=== PATIENT | female | born 1940 | race Caucasian/White ===

== ENCOUNTER 2018-08-31 20:28 | Inpatient (IN) | payer SELFPAY ==
[~2018-08-31] VITALS: Ht 149.9 cm; Wt 61.3 kg
[2018-08-31] MEDS ORDERED: ACETAMINOPHEN 325MG TABLET PO STA (21:43)
[2018-08-31] MEDS ORDERED: SODIUM CHLORIDE 0.9% 1000ML BAG (SEPSIS BOLUS) IV ONE (21:45)
[2018-08-31 22:41] LABS: HEMATOCRIT. 31.1 % (36.0-48.0); HEMOGLOBIN. 10.6 g/dL (12.0-16.0); MEAN CORPUSCULAR HEMOGLOBIN 31.1 pg (28.0-32.0); MEAN CORPUSCULAR VOLUME 91.7 fL (81.0-99.0); MEAN PLATELET VOLUME 9.2 fl (7.4-10.4); PLATELET 172 x1000/uL (130-400); RED BLOOD CELL COUNT 3.39 mill/uL (4.2-5.4); RED CELL DISTRIBUTION WIDTH 14.6 % (11.6-14.6)
[2018-08-31 22:43] LABS: PROTHROMBIN TIME 10.2 sec (9.1-11.1)
[2018-08-31 22:44] LABS: CHLORIDE 109 mEq/L (98-107)
[2018-08-31 23:00] LABS: PLATELET ESTIMATE NORMAL
[2018-08-31] MEDS ORDERED: ASPIRIN 325MG EC TABLET PO ONE (23:15)
[2018-08-31] MEDS ORDERED: PIPERACILLIN SODIUM/TAZOBACTAM 4.5 G in DEXT 5% WATER 100 ML IV SCH (23:37)
[2018-08-31] MEDS ORDERED: POTASSIUM CHLORIDE 20MEQ TABLET SR PO SCH (23:38)
[2018-09-01] VITALS (42 sets, daily range): BP systolic 54–168; BP diastolic 39–145
[2018-09-01 00:06] LABS: CLARITY URINE CLOUDY (CLEAR); COLOR URINE ORANGE (YELLOW); KETONES URINE NEGATIVE (NEGATIVE); LEUKOCYTE ESTERASE URINE 2+ (NEGATIVE); NITRITE URINE POSITIVE (NEGATIVE); OCCULT BLOOD URINE TRACE (NEGATIVE); PH URINE 5.5 (4.5-8.0); PROTEIN URINE 1+ (NEGATIVE); SPECIFIC GRAVITY URINE 1.019 (1.005-1.030)
[2018-09-01] MEDS ORDERED: SODIUM CHLORIDE 0.9% 1,000 ML IV ONE ×2 (01:30)
[2018-09-01] MEDS ORDERED: POTASSIUM CHLORIDE 20MEQ TABLET SR PO PRN (05:30)
[2018-09-01] MEDS ORDERED: ACETAMINOPHEN 325MG TABLET PO PRN (05:30)
[2018-09-01] MEDS ORDERED: TRAMADOL 50MG TABLET PO PRN (05:30)
[2018-09-01 06:14] LABS: BASOPHILS % 0.2 % (0.0-2.0); HEMATOCRIT. 30.9 % (36.0-48.0); HEMOGLOBIN. 10.3 g/dL (12.0-16.0); LYMPHOCYTES % 13.6 % (20.0-50.0); MEAN CORPUSCULAR HEMOGLOBIN 30.9 pg (28.0-32.0); MEAN CORPUSCULAR VOLUME 92.7 fL (81.0-99.0); MEAN PLATELET VOLUME 9.7 fl (7.4-10.4); MONOCYTES % 11.8 % (2.0-8.0); NEUTROPHILS % 74.4 % (40.0-76.0); PLATELET 159 x1000/uL (130-400); RED BLOOD CELL COUNT 3.34 mill/uL (4.2-5.4); RED CELL DISTRIBUTION WIDTH 14.5 % (11.6-14.6)
[2018-09-01 06:24] LABS: CHLORIDE 117 mEq/L (98-107)
[2018-09-01] MEDS: SODIUM CHLORIDE 0.9% 1,000 ML IV SCH ×2 (06:44→15:22)
[2018-09-01] MEDS: CEFTRIAXONE 1 G PREMIX 50 ML IV SCH (08:57)
[2018-09-01] MEDS: ONDANSETRON HCL 4MG/2ML INJ IV PRN ×2 (09:27→18:49)
[2018-09-01] MEDS ORDERED: ENOXAPARIN 40MG/0.4ML SYR SUBCUT SCH (09:30)
[2018-09-01] MEDS: ASPIRIN 81MG EC TABLET PO SCH (10:08)
[2018-09-01] MEDS ORDERED: INFLUENZA VIRUS VACCINE(AFLURIA) 0.5ML SYR IM ONE (12:00)
[2018-09-01] MEDS ORDERED: PNEUMOCOCCAL 23-VAL P-SAC VAC 0.5 ML IM ONE (12:00)
[2018-09-01] MEDS: ATORVASTATIN CALCIUM 40MG TABLET PO SCH (21:00)
[2018-09-01 22:57] LABS: BG BASE EXCESS -13.4 mmol/L (-2.0-2.0); BG CARBOXYHEMOGLOBIN 0.1 % (0.5-1.5); BG DEOXYHEMOGLOBIN 4.4 % (0.0-5.0); BG FRACTION INSPIRED OXYGEN 36; BG HCO3 ACT 13.8 mmol/L (22.0-26.0); BG METHEMOGLOBIN 0.1 % (0.0-1.5); BG OXYGEN SATURATION 95.6 % (92.0-98.5); BG OXYHEMOGLOBIN 95.4 % (94.0-97.0); BG PCO2 36.8 mmHg (35.0-45.0); BG PH 7.192 (7.350-7.450); BG SAMPLE SITE RIGHT RADIAL; BG TOTAL HEMOGLOBIN 11.4 g/dL (12.0-18.0); BG VENT MODE NASAL CANNULA
[2018-09-02] VITALS (31 sets, daily range): BP systolic 95–160; BP diastolic 50–95
[2018-09-02] MEDS ORDERED: FUROSEMIDE 20MG/2ML VIAL IVP SCH (00:30)
[2018-09-02] MEDS: SODIUM CHLORIDE 0.9% 1,000 ML IV SCH (00:33)
[2018-09-02] MEDS: IPRATROPIUM/ALBUTEROL 0.5-3(2.5)MG/3ML NEB HHN PRN (01:29)
[2018-09-02 01:34] LABS: HEMATOCRIT. 35.1 % (36.0-48.0); HEMOGLOBIN. 11.4 g/dL (12.0-16.0); MEAN CORPUSCULAR HEMOGLOBIN 30.4 pg (28.0-32.0); MEAN PLATELET VOLUME 9.5 fl (7.4-10.4); PLATELET 223 x1000/uL (130-400); RED BLOOD CELL COUNT 3.73 mill/uL (4.2-5.4); RED CELL DISTRIBUTION WIDTH 15.4 % (11.6-14.6)
[2018-09-02 01:39] LABS: CHLORIDE 115 mEq/L (98-107)
[2018-09-02 02:56] LABS: PLATELET ESTIMATE NORMAL
[2018-09-02 06:24] LABS: HEMATOCRIT. 29.3 % (36.0-48.0); HEMOGLOBIN. 9.9 g/dL (12.0-16.0); MEAN CORPUSCULAR HEMOGLOBIN 31.1 pg (28.0-32.0); MEAN CORPUSCULAR VOLUME 92.2 fL (81.0-99.0); MEAN PLATELET VOLUME 9.6 fl (7.4-10.4); PLATELET 179 x1000/uL (130-400); RED BLOOD CELL COUNT 3.18 mill/uL (4.2-5.4)
[2018-09-02 06:27] LABS: CHLORIDE 116 mEq/L (98-107)
[2018-09-02] MEDS: CEFTRIAXONE 1 G PREMIX 50 ML IV SCH (06:48)
[2018-09-02 08:11] LABS: PLATELET ESTIMATE NORMAL
[2018-09-02] MEDS: POTASSIUM CHLORIDE 20MEQ TABLET SR PO SCH (09:53)
[2018-09-02] MEDS ORDERED: POTASSIUM CHLORIDE INJ 40 MEQ in DEXT 5% WATER 250 ML IV NR (10:00)
[2018-09-02] MEDS: ASPIRIN 81MG EC TABLET PO SCH (10:24)
[2018-09-02] MEDS: ENOXAPARIN 80MG/0.8ML SYR SUBCUT SCH ×2 (10:24→21:34)
[2018-09-02] MEDS: FUROSEMIDE 40MG/4ML VIAL IVP SCH ×2 (10:24→17:16)
[2018-09-02] MEDS: ATORVASTATIN CALCIUM 40MG TABLET PO SCH (21:33)
[2018-09-02] MEDS: CARVEDILOL 6.25 MG TABLET PO SCH (21:34)
[2018-09-03] VITALS (36 sets, daily range): BP systolic 77–124; BP diastolic 43–92
[2018-09-03 06:37] LABS: BASOPHILS % 0.4 % (0.0-2.0); HEMATOCRIT. 29.3 % (36.0-48.0); HEMOGLOBIN. 9.9 g/dL (12.0-16.0); LYMPHOCYTES % 8.8 % (20.0-50.0); MEAN CORPUSCULAR HEMOGLOBIN 30.8 pg (28.0-32.0); MEAN CORPUSCULAR VOLUME 91.4 fL (81.0-99.0); MONOCYTES % 10.3 % (2.0-8.0); NEUTROPHILS % 80.5 % (40.0-76.0); PLATELET 205 x1000/uL (130-400)
[2018-09-03] MEDS: CEFTRIAXONE 1 G PREMIX 50 ML IV SCH (07:15)
[2018-09-03] MEDS: IPRATROPIUM/ALBUTEROL 0.5-3(2.5)MG/3ML NEB HHN PRN ×2 (07:51→17:05)
[2018-09-03] MEDS: FUROSEMIDE 40MG/4ML VIAL IVP SCH ×2 (08:08→17:15)
[2018-09-03 08:49] LABS: BG BASE EXCESS -4.7 mmol/L (-2.0-2.0); BG CARBOXYHEMOGLOBIN 0.3 % (0.5-1.5); BG DEOXYHEMOGLOBIN 3.2 % (0.0-5.0); BG FRACTION INSPIRED OXYGEN 28; BG HCO3 ACT 21.1 mmol/L (22.0-26.0); BG OXYGEN SATURATION 96.8 % (92.0-98.5); BG OXYHEMOGLOBIN 96.5 % (94.0-97.0); BG PCO2 41.7 mmHg (35.0-45.0); BG PH 7.322 (7.350-7.450); BG PO2 91.4 mmHg (75.0-100.0); BG SAMPLE SITE RIGHT RADIAL; BG TOTAL HEMOGLOBIN 10.4 g/dL (12.0-18.0); BG VENT MODE NASAL CANNULA
[2018-09-03] MEDS: CARVEDILOL 6.25 MG TABLET PO SCH ×2 (09:00→21:00)
[2018-09-03] MEDS: ASPIRIN 81MG EC TABLET PO SCH (09:46)
[2018-09-03] MEDS: ENOXAPARIN 80MG/0.8ML SYR SUBCUT SCH ×2 (09:46→22:40)
[2018-09-03] MEDS: ATORVASTATIN CALCIUM 40MG TABLET PO SCH (22:40)
[2018-09-04] VITALS (25 sets, daily range): BP systolic 84–124; BP diastolic 40–75
[2018-09-04 06:29] LABS: CHLORIDE 111 mEq/L (98-107)
[2018-09-04] MEDS: CEFTRIAXONE 1 G PREMIX 50 ML IV SCH (07:28)
[2018-09-04] MEDS: FUROSEMIDE 40MG/4ML VIAL IVP SCH ×2 (09:50→17:15)
[2018-09-04] MEDS: ASPIRIN 81MG EC TABLET PO SCH (09:51)
[2018-09-04] MEDS: POTASSIUM CHLORIDE 20MEQ TABLET SR PO SCH (09:51)
[2018-09-04] MEDS: ENOXAPARIN 80MG/0.8ML SYR SUBCUT SCH ×2 (09:56→21:19)
[2018-09-04] MEDS: CARVEDILOL 6.25 MG TABLET PO SCH ×2 (09:57→21:00)
[2018-09-04] MEDS: IPRATROPIUM/ALBUTEROL 0.5-3(2.5)MG/3ML NEB HHN PRN (13:37)
[2018-09-04] MEDS: NITROGLYCERIN OINT 1GM/INCH UDPKT TD SCH ×2 (15:00→22:00)
[2018-09-04] MEDS: LEVOFLOXACIN 250MG TABLET PO SCH (15:46)
[2018-09-04] MEDS: ATORVASTATIN CALCIUM 40MG TABLET PO SCH (21:19)
[2018-09-05] VITALS (29 sets, daily range): BP systolic 89–121; BP diastolic 47–75
[2018-09-05 05:33] LABS: BASOPHILS % 0.4 % (0.0-2.0); EOSINOPHILS % 2.2 % (0.0-5.0); HEMATOCRIT. 29.1 % (36.0-48.0); HEMOGLOBIN. 9.7 g/dL (12.0-16.0); LYMPHOCYTES % 17.9 % (20.0-50.0); MEAN CORPUSCULAR HEMOGLOBIN 30.4 pg (28.0-32.0); MEAN CORPUSCULAR VOLUME 91.4 fL (81.0-99.0); MEAN PLATELET VOLUME 8.9 fl (7.4-10.4); MONOCYTES % 14.1 % (2.0-8.0); NEUTROPHILS % 65.4 % (40.0-76.0); PLATELET 259 x1000/uL (130-400); RED BLOOD CELL COUNT 3.19 mill/uL (4.2-5.4); RED CELL DISTRIBUTION WIDTH 14.5 % (11.6-14.6)
[2018-09-05 05:44] LABS: CHLORIDE 108 mEq/L (98-107)
[2018-09-05] MEDS: NITROGLYCERIN OINT 1GM/INCH UDPKT TD SCH ×4 (06:00→21:09)
[2018-09-05] MEDS: FUROSEMIDE 40MG/4ML VIAL IVP SCH ×2 (07:59→17:37)
[2018-09-05] MEDS: ASPIRIN 81MG EC TABLET PO SCH (09:00)
[2018-09-05] MEDS: ENOXAPARIN 80MG/0.8ML SYR SUBCUT SCH (09:00)
[2018-09-05] MEDS: CARVEDILOL 6.25 MG TABLET PO SCH (09:00)
[2018-09-05] MEDS: POTASSIUM CHLORIDE 20MEQ TABLET SR PO SCH (09:00)
[2018-09-05] MEDS: ATORVASTATIN CALCIUM 40MG TABLET PO SCH (21:09)
[2018-09-06] VITALS (11 sets, daily range): BP systolic 91–106; BP diastolic 46–63
[2018-09-06] MEDS: NITROGLYCERIN OINT 1GM/INCH UDPKT TD SCH ×3 (06:35→21:41)
[2018-09-06 08:23] LABS: BASOPHILS % 0.7 % (0.0-2.0); EOSINOPHILS % 2.6 % (0.0-5.0); HEMATOCRIT. 31.2 % (36.0-48.0); HEMOGLOBIN. 10.5 g/dL (12.0-16.0); LYMPHOCYTES % 16.4 % (20.0-50.0); MEAN CORPUSCULAR HEMOGLOBIN 30.7 pg (28.0-32.0); MEAN CORPUSCULAR VOLUME 91.2 fL (81.0-99.0); MEAN PLATELET VOLUME 9.1 fl (7.4-10.4); MONOCYTES % 13.5 % (2.0-8.0); NEUTROPHILS % 66.8 % (40.0-76.0); PLATELET 315 x1000/uL (130-400); RED BLOOD CELL COUNT 3.42 mill/uL (4.2-5.4); RED CELL DISTRIBUTION WIDTH 14.1 % (11.6-14.6)
[2018-09-06] MEDS: FUROSEMIDE 40MG/4ML VIAL IVP SCH ×2 (09:04→17:08)
[2018-09-06] MEDS: POTASSIUM CHLORIDE 20MEQ TABLET SR PO SCH (09:22)
[2018-09-06] MEDS: CARVEDILOL 3.125 MG TABLET PO SCH ×2 (09:24→21:41)
[2018-09-06] MEDS: ASPIRIN 81MG EC TABLET PO SCH (09:24)
[2018-09-06] MEDS ORDERED: LIDOCAINE HCL 1% 20ML VIAL (Pyxis) INJ ONE (12:21)
[2018-09-06] MEDS ORDERED: IODIXANOL 320MG/ML 100 ML BOTTLE IV ONE ×2 (12:21→13:54)
[2018-09-06] MEDS ORDERED: FENTANYL CITRATE/PF 50MCG/ML 2ML VIAL ONE (12:46)
[2018-09-06] MEDS ORDERED: MIDAZOLAM HCL 2 MG/2 ML VIAL ONE (12:46)
[2018-09-06] MEDS ORDERED: IOHEXOL-300 100 ML BOTTLE ONE (13:19)
[2018-09-06] MEDS ORDERED: HEPARIN SODIUM 1,000 UNIT/1ML VIAL IV ONE (13:53)
[2018-09-06] MEDS ORDERED: NITROGLYCERIN 50MCG/ML 10ML VIAL (CATH LAB) IV ONE (13:59)
[2018-09-06] MEDS ORDERED: NICARDIPINE 100MCG/ML 10ML VIAL (CATH LAB) IV ONE (13:59)
[2018-09-06] MEDS ORDERED: ASPIRIN 325MG TABLET ONE (14:00)
[2018-09-06] MEDS ORDERED: CLOPIDOGREL 75MG TABLET ONE (14:01)
[2018-09-06] MEDS ORDERED: ONDANSETRON HCL 4MG/2ML INJ IV PRN (14:15)
[2018-09-06] MEDS ORDERED: ATROPINE SULFATE 1MG/10ML SYR IV PRN (14:15)
[2018-09-06] MEDS ORDERED: ACETAMINOPHEN 325MG TABLET PO PRN (14:15)
[2018-09-06] MEDS: LEVOFLOXACIN 250MG TABLET PO SCH (15:24)
[2018-09-06] MEDS: ATORVASTATIN CALCIUM 40MG TABLET PO SCH (21:41)
[2018-09-07] VITALS (8 sets, daily range): BP systolic 97–119; BP diastolic 55–71
[2018-09-07] MEDS: FUROSEMIDE 40MG/4ML VIAL IVP SCH (06:53)
[2018-09-07] MEDS: NITROGLYCERIN OINT 1GM/INCH UDPKT TD SCH ×2 (06:53→14:00)
[2018-09-07 07:03] LABS: BASOPHILS % 0.4 % (0.0-2.0); EOSINOPHILS % 2.1 % (0.0-5.0); HEMATOCRIT. 32.6 % (36.0-48.0); HEMOGLOBIN. 11.1 g/dL (12.0-16.0); LYMPHOCYTES % 14.3 % (20.0-50.0); MEAN CORPUSCULAR VOLUME 90.6 fL (81.0-99.0); MEAN PLATELET VOLUME 8.6 fl (7.4-10.4); NEUTROPHILS % 72.2 % (40.0-76.0); PLATELET 346 x1000/uL (130-400); RED BLOOD CELL COUNT 3.59 mill/uL (4.2-5.4); RED CELL DISTRIBUTION WIDTH 14.4 % (11.6-14.6)
[2018-09-07] MEDS ORDERED: ASPIRIN 325MG TABLET PO SCH (09:00)
[2018-09-07] MEDS ORDERED: CLOPIDOGREL 75MG TABLET PO SCH (09:00)
[2018-09-07] MEDS: POTASSIUM CHLORIDE 20MEQ TABLET SR PO SCH (09:39)
[2018-09-07] MEDS: CARVEDILOL 3.125 MG TABLET PO SCH (09:40)
== END 2018-09-07 16:43 | disposition home or self-care (01) | DRG 710 ==
LOC: ER 20:28 → CVICU 09-01 01:19 → EDBEDREQSVC 09-01 01:20 → EDBEDREQ 09-01 01:20 → EDBEDREQTM 09-01 01:20 → ENRESERV 09-01 03:09 → 3WST 09-05 12:25
PROVIDERS: ADMIT Emergency Medicine; ATTEND Emergency Medicine
PROC: 027034Z Dilation of Coronary Artery, One Artery with Drug-eluting Intraluminal Device, Percutaneous Approach (ICD-10-PCS; principal; 2018-09-06)
PROC: 02703ZZ Dilation of Coronary Artery, One Artery, Percutaneous Approach (ICD-10-PCS; 2018-09-06)
PROC: 4A023N7 Measurement of Cardiac Sampling and Pressure, Left Heart, Percutaneous Approach (ICD-10-PCS; 2018-09-06)
PROC: B2111ZZ Fluoroscopy of Multiple Coronary Arteries using Low Osmolar Contrast (ICD-10-PCS; 2018-09-06)
PROC: B2151ZZ Fluoroscopy of Left Heart using Low Osmolar Contrast (ICD-10-PCS; 2018-09-06)
DX: A41.51 Sepsis due to Escherichia coli [E. coli] (principal); I21.09 ST elevation (STEMI) myocardial infarction involving other coronary artery of anterior wall; J96.00 Acute respiratory failure, unspecified whether with hypoxia or hypercapnia; I50.23 Acute on chronic systolic (congestive) heart failure; E11.65 Type 2 diabetes mellitus with hyperglycemia; I42.9 Cardiomyopathy, unspecified; E87.2 Acidosis; I11.0 Hypertensive heart disease with heart failure; D64.9 Anemia, unspecified; E78.00 Pure hypercholesterolemia, unspecified; E78.5 Hyperlipidemia, unspecified; E87.6 Hypokalemia; I27.20 Pulmonary hypertension, unspecified; I25.10 Atherosclerotic heart disease of native coronary artery without angina pectoris; N39.0 Urinary tract infection, site not specified; Z79.02 Long term (current) use of antithrombotics/antiplatelets; Z79.899 Other long term (current) drug therapy
CPT/HCPCS: 36415; 36600; 71045; 80048; 82375; 82805; 82962; 83036; 83605; 83735; 84132; 84145; 84484; 85347; 87077; 87186; 92928; 93005; 93306; 93458; 96361; 96365; 99291; C1725; C1769; C1874; C1887; C1893; J0696; J1644; J1650; J1940; J2250; J2405; J2543; J3010; J3480; J3490; J7030; J7050; J7060; J7620; Q9967; A4315